=== PATIENT | female | born 1935 | race African-American/Black ===

== ENCOUNTER 2017-06-14 09:42 | Emergency (ER) | payer OTHER ==
[~2017-06-14] VITALS: Ht 165.1 cm; Wt 86.2 kg
[2017-06-14 09:50] VITALS: BP_SYST 127
--- NOTE | 2017-06-14 09:56 | NUR ---
Patient to ER bed 4 to gown for evaluation. Side rails up. Report given to LARISA ZAYAS.
--- NOTE | 2017-06-14 10:06 | NUR ---
Pt AAOx4, able to verbalize needs. Pt states she had itching on right forearm since or Wednesday from unknown cause which increased in swelling. Noted warm, reddened, raised skin about 3 inches in diameter, surrounding skin is cool to touch. Pt states no n/v or fever, or other symptoms. No other complaints or injuries per pt or noted.
--- NOTE | 2017-06-14 10:55 | NUR ---
Patient given written and verbal discharge instructions and verbalizes understanding. ER MD discussed with patient the results and treatment provided. Patient in stable condition. ID arm band removed. Rx of prednisone and benadryl given. Patient educated on pain management and to follow up with PMD. Pain Scale 0. Opportunity for questions provided and answered.
[2017-06-14 11:02] VITALS: BP_SYST 120
== END 2017-06-14 10:55 | disposition home or self-care (01) ==
LOC: SED 09:42
DX: S50.861A Insect bite (nonvenomous) of right forearm, initial encounter (principal); I10 Essential (primary) hypertension; Z90.49 Acquired absence of other specified parts of digestive tract; W57.XXXA Bitten or stung by nonvenomous insect and other nonvenomous arthropods, initial encounter; Y93.89 Activity, other specified; Y92.89 Other specified places as the place of occurrence of the external cause; Y99.8 Other external cause status
CPT/HCPCS: 99283